=== PATIENT | male | born 1985 | race Caucasian/White ===

== ENCOUNTER 2019-01-16 08:14 | Emergency (ER) | payer SELFPAY ==
[2019-01-16 08:45] LABS: ADD MAN DIFF? NO
[2019-01-16 08:49] LABS: WHITE BLOOD COUNT 3.9 10^3/ul (4.8-10.8)
[2019-01-16 08:49] LABS: BASOPHILS % 0.5 % (0.0-2.0); HEMATOCRIT 38.6 % (42.0-52.0); HEMOGLOBIN 13.3 g/dl (14.0-18.0); LYMPHOCYTES # 1.5 10^3/ul (0.8-2.9); LYMPHOCYTES % 39.1 % (15.0-51.0); MEAN CORPUSCULAR HEMOGLOBIN 32.2 pg (29.0-33.0); MEAN CORPUSCULAR HGB CONC 34.5 g/dl (32.0-37.0); MEAN CORPUSCULAR VOLUME 93.5 fl (82.0-101.0); MEAN PLATELET VOLUME 8.9 fl (7.4-10.4); MONOCYTE # 0.3 10^3/ul (0.3-0.9); MONOCYTES % 8.4 % (0.0-11.0); NEUTROPHILS % 50.7 % (39.0-77.0); PLATELET COUNT 172 10^3/UL (140-415); RED BLOOD COUNT 4.13 10^6/ul (4.70-6.10); RED CELL DISTRIBUTION WIDTH 13.3 % (11.5-14.5)
[2019-01-16] MEDS: MAGNESIUM SULFATE 2 GM, MULTIVITAMINS 10 ML, THIAMINE 100 MG, FOLIC ACID 1 MG in SOD CH... IV (08:59)
[2019-01-16 09:07] LABS: ALANINE AMINOTRANSFERASE 49 IU/L (13-69); ALBUMIN 4.8 g/dl (3.3-4.9); ALBUMIN/GLOBULIN RATIO 1.33; ALKALINE PHOSPHATASE 134 IU/L (42-121); ANION GAP 15 (5-13); ASPARTATE AMINO TRANSFERASE 124 IU/L (15-46); BILIRUBIN,INDIRECT 0.1 mg/dl (0-1.1); BILIRUBIN,TOTAL 0.1 mg/dl (0.2-1.3); BLOOD UREA NITROGEN 8 mg/dl (7-20); CALCIUM 9.5 mg/dl (8.4-10.2); CARBON DIOXIDE 24 mmol/L (21-31); CHLORIDE 103 mmol/L (97-110); CREATININE 0.57 mg/dl (0.61-1.24); Estimated GFR > 60 mL/min (>60); GLUCOSE 109 mg/dl (70-220); POTASSIUM 3.7 mmol/L (3.5-5.1); SODIUM 142 mmol/L (135-144); TOTAL PROTEIN 8.4 g/dl (6.1-8.1)
[2019-01-16 09:19] LABS: ACETAMINOPHEN < 10.0 ug/ml (10.0-30.0); SALICYLATE < 1.0 mg/dl (5.0-30.0)
== END 2019-01-16 14:47 | disposition home or self-care (01) ==
LOC: E/R 08:14
DX: F10.920 Alcohol use, unspecified with intoxication, uncomplicated (principal); S43.102A Unspecified dislocation of left acromioclavicular joint, initial encounter; R40.2142 Coma scale, eyes open, spontaneous, at arrival to emergency department; R40.2252 Coma scale, best verbal response, oriented, at arrival to emergency department; R40.2362 Coma scale, best motor response, obeys commands, at arrival to emergency department; R93.0 Abnormal findings on diagnostic imaging of skull and head, not elsewhere classified; V89.2XXD Person injured in unspecified motor-vehicle accident, traffic, subsequent encounter
CPT/HCPCS: 70450; 73030; 80053; 80307; 85025; 96374; 99285-25